=== PATIENT | female | born 1965 | race Caucasian/White ===

== ENCOUNTER 2016-05-24 21:20 | Emergency (ER) | payer MEDICARE, MEDICAID ==
[2016-05-24] MEDS ORDERED: MAGNESIUM SULFATE/D5W 1 GM/100 ML RTUPB IV ONE ×2 (21:25→21:26)
[2016-05-24] MEDS ORDERED: ALBUTEROL SULFATE 0.083% NEB 2.5 MG/3 ML AMPUL NEB ONE (21:26)
[2016-05-24] MEDS ORDERED: IPRATROPIUM/ALBUTEROL 0.5-2.5 MG/3 ML AMPUL NEB ONE (21:26)
--- NOTE | 2016-05-24 21:29 | ER Document Report ---
ED Respiratory Problem - General Stated Complaint: FEVER,DIFFICULTY BREATHING Time seen by provider: 21:27 Mode of Arrival: Medic Information source: Patient, Emergency Med Personnel - HPI Patient complains to provider of: COPD, Cough, Short of breath Onset: Other - 2 days Duration: Worse/persistent Quality of pain: No pain Context: Hx COPD Short of Breath: Severe Chest pain/discomfort: Tightness Cough: Nonproductive EMS treatments: Bronchodilators, CPAP, Solumedrol Associated symptoms: Congestion, Cough, Short of breath, Wheezing Similar symptoms previously: Yes Notes: Patient is a 51-year-old female brought to the emergency room by EMS on see Pap for complaints of difficulty breathing that's been worsening over the past 2 days, patient has a fever, nonproductive cough, wheezing diffusely, history of COPD, former smoker, she denies any chest pain - Related Data Allergies/Adverse Reactions: bupropion HCl [From Wellbutrin] Allergy (Verified 05/25/16 01:00) Penicillins Allergy (Verified 05/25/16 01:00) Home Medications: Current Home Medications Aripiprazole [Abilify] 10 mg PO DAILY 05/25/16 [History] Ca/D3/Mag Ox/Zinc/[employer]/Doron/Bor [Calcium 600-Vit D3-Min Chew Tb] 1 tab PO DAILY 05/25/16 [History] Dextroamphetamine/Amphetamine [Adderall 10 mg Tablet] 10 mg PO TID 05/25/16 [ History] Docusate Sodium 100 mg PO DAILY PRN 05/25/16 [History] Fluticasone Propionate [Flovent Diskus] 50 mcg IH TID PRN 05/25/16 [History] Gabapentin 300 mg PO TID 05/25/16 [History] Hydrochlorothiazide 25 mg PO DAILY 05/25/16 [History] Levothyroxine Sodium [Synthroid 0.088 mg Tablet] 88 mcg PO DAILY 05/25/16 [ History] Metformin HCl 500 mg PO DAILY 05/25/16 [History] Montelukast Sodium 10 mg PO DAILY 05/25/16 [History] Omeprazole 20 mg PO DAILY 05/25/16 [History] Oxycodone HCl [Oxycodone HCl 10 MG Tablet] 10 mg PO TID 05/25/16 [History] Oxymorphone HCl [Opana Er] 30 mg PO BID 05/25/16 [History] Paroxetine HCl [Paxil] 40 mg PO DAILY 05/25/16 [History] Past Medical History - General Information source: Patient, Emergency Med Personnel - Social History Smoking Status: Former Smoker Family History: Reviewed & Not Pertinent Review of Systems - Review of Systems Constitutional: Fever EENT: No symptoms reported Cardiovascular: No symptoms reported Respiratory: See HPI Gastrointestinal: No symptoms reported Genitourinary: No symptoms reported Female Genitourinary: No symptoms reported Musculoskeletal: No symptoms reported Skin: No symptoms reported Hematologic/Lymphatic: No symptoms reported Neurological/Psychological: No symptoms reported -: Yes All other systems reviewed and negative Physical Exam - Vital signs Vitals: Temp Resp Pulse Ox 98.8 F 19 95 05/24/16 21:28 05/24/16 21:28 05/24/16 21:28 Interpretation: Normal - General General appearance: Alert In distress: Moderate - HEENT Head: Normocephalic, Atraumatic Eyes: Normal Pupils: PERRL - Respiratory Respiratory status: Respiratory distress, Other - Arrived on CPAP Chest status: Nontender Breath sounds: Decreased air movement, Nonproductive cough, Wheezing Chest palpation: Normal - Cardiovascular Rhythm: Regular Heart sounds: Normal auscultation Murmur: No - Abdominal Inspection: Healed incision - Midline, Obese Distension: No distension Bowel sounds: Normal Tenderness: Nontender Organomegaly: No organomegaly - Back Back: Normal, Nontender - Extremities General upper extremity: Normal inspection, Nontender, Normal color, Normal ROM , Normal temperature General lower extremity: Normal inspection, Nontender, Normal color, Normal ROM , Normal temperature. No: Miguel's sign - Neurological Neuro grossly intact: Yes Cognition: Normal Orientation: AAOx4 Ten Coma Scale Eye Opening: Spontaneous [place] Coma Scale Verbal: Oriented [place] Coma Scale Motor: Obeys Commands Ten Coma Scale Total: 15 Speech: Normal Motor strength normal: LUE, RUE, LLE, RLE Sensory: Normal - Psychological Associated symptoms: Normal affect, Normal mood - Skin Skin Temperature: Warm Skin Moisture: Dry Skin Color: Normal Course - Re-evaluation Re-evalutation: 05/24/16 23:05 Patient resting comfortably, vital signs are stable, I removed the BiPAP a proximally 20 minutes ago to give patient trial without it, she seems to be tolerating O2 via nasal cannula quite nicely, plan to admit to the hospital service for further evaluation and treatment of COPD exacerbation 05/24/16 23:07 Attempted to call hospitalist for admission, states he is very busy right now he will call me back when available 05/25/16 01:58 Patient resting comfortably, continues to tolerate oxygen via nasal cannula, does not require BiPAP placement at present time, discussed with hospitalist who agrees to admit for further evaluation and treatment 05/25/16 04:48 Notified by hospitalist that patient is requesting to leave AGAINST MEDICAL ADVICE as he was entering the room to perform his initial evaluation patient for admission, since I had been caring for patient throughout her stay in the emergency room I did discuss this decision with her, I advised patient that it would be in her best interest to stay in the hospital for further evaluation and treatment as she was quite sick when she arrived needing BiPAP placement, patient stated that she's been sitting in the same sit bed the entire evening, and she would much prefer to go home and sleep in her own bed and follow-up with her primary care provider in the morning, I advised patient of the risks and complications associated with leaving the hospital after having such a degree of respiratory distress upon arrival, patient acknowledged understanding and agreement, although I feel it's a poor decision on patient's part I do not believe she lacks the capacity to make this decision, and therefore was permitted to sign out AGAINST MEDICAL ADVICE, advised to return at any time should she require further care - Vital Signs Vital signs: Temp Pulse Resp BP Pulse Ox 98.8 F 17 137/86 H 95 05/25/16 01:01 05/25/16 02:39 05/25/16 02:39 05/25/16 02:39 - Laboratory Result Diagrams: 05/24/16 21:25 05/24/16 21:25 Laboratory results interpreted by me: 05/24/16 05/24/16 05/24/16 21:25 21:25 22:15 WBC 13.9 H RDW 14.1 H Seg Neutrophils % 88.7 H Lymphocytes % 6.4 L Absolute Neutrophils 12.4 H ABG pO2 158.2 H ABG Total CO2 25.1 H ABG O2 Saturation 99.0 H Sodium 134.3 L Chloride 92 L Glucose 209 H - Diagnostic Test Radiology reviewed: Image reviewed, Reports reviewed - EKG Interpretation by Me EKG shows normal: Sinus rhythm Rate: Tachycardia [place]/QRS: LAHB/LAFB Critical Care Note - Critical Care Note Total time excluding time spent on procedures (mins): 45 Comments: Patient arrived in respiratory distress on BiPAP, requiring close monitoring, and admission to the IMCU Discharge - Discharge Clinical Impression: COPD exacerbation Condition: Fair Disposition: AGAINST MEDICAL ADVICE Admitting Provider: Hospitalist Unit Admitted: [facility]
[2016-05-24 21:55] LABS: ABSOLUTE BASOPHILS # (AUTO) 0.1 10^3/uL (0.0-0.2); ABSOLUTE LYMPHOCYTES (AUTO) 0.9 10^3/uL (0.5-4.7); ABSOLUTE MONOCYTES (AUTO) 0.6 10^3/uL (0.1-1.4); ABSOLUTE NEUT (AUTO) 12.4 10^3/uL (1.7-8.2); BASOPHILS % (AUTO) 0.6 % (0-2); HEMATOCRIT 41.3 % (36.0-47.0); HEMOGLOBIN 13.6 g/dL (12.0-15.5); HGB HCT DIFFERENCE -0.5; LYMPHOCYTES % (AUTO) 6.4 % (13-45); MEAN CORPUSCULAR HEMOGLOBIN 29.3 pg (27.0-33.4); MEAN CORPUSCULAR HGB CONC 32.9 g/dL (32.0-36.0); MEAN CORPUSCULAR VOLUME 89 fl (80-97); MONOCYTES % (AUTO) 4.3 % (3-13); RED BLOOD COUNT 4.63 10^6/uL (3.72-5.28); RED CELL DISTRIBUTION WIDTH 14.1 % (11.5-14.0); SEGMENTED NEUTROPHILS % (AUTO) 88.7 % (42-78); WHITE BLOOD COUNT 13.9 10^3/uL (4.0-10.5)
[2016-05-24 22:11] LABS: ALANINE AMINOTRANSFERASE 41 U/L (9-52); ALBUMIN 4.6 g/dL (3.5-5.0); ALKALINE PHOSPHATASE 100 U/L (38-126); ANION GAP 14 (5-19); ASPARTATE AMINO TRANSFERASE 35 U/L (14-36); BILIRUBIN,TOTAL 0.5 mg/dL (0.2-1.3); BLOOD UREA NITROGEN 13 mg/dL (7-20); CALCIUM 9.2 mg/dL (8.4-10.2); CARBON DIOXIDE 28 mmol/L (22-30); CHLORIDE 92 mmol/L (98-107); CREATINE KINASE 66 U/L (30-135); CREATININE RESULT 0.74 mg/dL (0.52-1.25); GLUCOSE 209 mg/dL (75-110); MAGNESIUM 1.8 mg/dL (1.6-2.3); POTASSIUM 3.9 mmol/L (3.6-5.0); SODIUM 134.3 mmol/L (137-145); TOTAL PROTEIN 7.7 g/dL (6.3-8.2)
[2016-05-24 22:23] LABS: CREATINE KINASE MB 1.47 ng/mL (<4.55); TROPONIN I < 0.012 ng/mL
[2016-05-24] MEDS ORDERED: AZTREONAM INJ 1 GM VIAL IV ONE (22:59)
[2016-05-24] MEDS ORDERED: LEVOFLOXACIN 750 MG TABLET PO ONE (22:59)
[2016-05-25 02:49] VITALS: BP 137/86
--- NOTE | 2016-05-25 08:05 | EKG REPORT ---
SEVERITY:- ABNORMAL ECG - SINUS TACHYCARDIA LEFT ANTERIOR FASCICULAR BLOCK LATE TRANSITION, NONSPECIFIC LAATERAL ST CHANGES. : Confirmed by: Sky Downing MD 25-May-2016 08:05:07
== END 2016-05-25 04:58 | disposition left against medical advice (07) ==
LOC: ER 21:20 → UNDOADMIN 05-25 02:02 → EH 05-25 02:02 → UNDODISIN 05-25 04:58 → ER 05-25 04:58
DX: J44.1 Chronic obstructive pulmonary disease with (acute) exacerbation (principal); R50.9 Fever, unspecified; Z87.891 Personal history of nicotine dependence; Z88.0 Allergy status to penicillin
CPT/HCPCS: 93005; 99291; 96375; 96365; 87040; 82553; 82803; 82550; 83735; 85025; 80053; 84484; 83880; 71010; 93010; 94660; J3475; J3490; A9270 ×3; J7620